=== PATIENT | female | born 1955 | race Two or more races ===

== ENCOUNTER 2018-08-10 12:07 | Emergency (ER) | payer OTHER ==
[2018-08-10 13:19] LABS: Protime INR 1.01
[2018-08-10 13:21] LABS: Absolute Lymphocytes (CBC) 2.9 K/uL (0.7-4.9); Absolute Monocytes 0.7 K/uL (0.1-1.3); Basophils % 0.8 % (0-1.3); Eosinophils % 1.5 % (0-4.4); Hematocrit 38.9 % (36.0-45.0); Lymphocytes % 27.1 % (15.3-44.8); MPV 8.3 fL (7.6-11.3); Monocytes % 6.6 % (3.3-12.3); RBC Red Blood Cell Count 4.31 M/uL (3.86-4.86)
--- NOTE | 2018-08-10 13:29 | RAD REPORT ---
EXAM DESCRIPTION: RAD - Chest Single View - 08/10/2018 1:24 pm CLINICAL HISTORY: PALPITATIONS Chest pain. COMPARISON: Chest Pa And Lat (2 Views) dated 07/21/2017; Chest Pa And Lat (2 Views) dated 07/15/2017; C hest Pa And Lat (2 Views) dated 12/07/2016; Chest Pa And Lat (2 Views) dated 09/30/2015 FINDINGS: Portable technique limits examination quality. The lungs are grossly clear. The heart is normal in size. No displaced fractures. IMPRESSION: No acute intrathoracic process suspected.
[2018-08-10 13:30] LABS: ALT/SGPT 31 U/L (12-78); AST/SGOT 16 U/L (15-37); Albumin 3.7 g/dL (3.4-5.0); Alkaline Phosphatase 102 U/L (45-117); BUN Blood Urea Nitrogen 17 mg/dL (7-18); Bicarbonate 25 mmol/L (21-32); Bilirubin Direct 0.1 mg/dL (0-0.2); Bilirubin Total 0.5 mg/dL (0.2-1.0); Glucose Level 206 mg/dL (74-106); NT PRO-BNP 33 pg/mL (<125); Potassium 3.8 mmol/L (3.5-5.1); Protein, Total 8.2 g/dL (6.4-8.2); Sodium Level 138 mmol/L (136-145); Troponin (Emerg Dept Use Only) < 0.02 ng/mL (0.0-0.045)
--- NOTE | 2018-08-10 14:36 | ER ---
Nurse's Notes [facility] Name: Zahra Jolley Age: 62 yrs Sex: Female : 1955 Arrival Date: 08/10/2018 Time: 12:09 Bed 4 Private MD: Isabel Sandoval H Diagnosis: Palpitations Presentation: 08/10 12:34 Presenting complaint: Patient states: pt c/o pain to left arm and left side of chest iw radiates to left side of neck and upper back, pain is intermittent for months, also c/o intermittent palpitations and intermittent dizziness, was due to see Dr. Sandoval on August 18 but symptoms got worse yesterday. Transition of care: patient was not received from another setting of care. Onset of symptoms was June 2018. Risk Assessment: Do you want to hurt yourself or someone else? Patient reports no desire to harm self or others. Initial Sepsis Screen: Does the patient meet any 2 criteria? No. Patient's initial sepsis screen is negative. Does the patient have a suspected source of infection? No. Patient's initial sepsis screen is negative. Care prior to arrival: None. 12:34 Method Of Arrival: Ambulatory iw 12:34 Acuity: KT 3 iw Triage Assessment: 12:30 General: Appears in no apparent distress. comfortable. bp Historical: - Allergies: 12:39 Morphine; iw 12:39 Phenergan; iw - Home Meds: 12:39 Breann 180 mg Oral tab 1 tab once daily [Active]; Multiple Vitamins Oral tab [Active]; iw - PMHx: 12:39 UTI; iw - Immunization history:: Adult Immunizations up to date. - Social history:: Smoking status: Patient/guardian denies using tobacco. - Ebola Screening: : Patient negative for fever greater than or equal to 101.5 degrees Fahrenheit, and additional compatible Ebola Virus Disease symptoms Patient denies exposure to infectious person Patient denies travel to an Ebola-affected area in the 21 days before illness onset No symptoms or risks identified at this time. Screenin:40 Abuse screen: Denies threats or abuse. Denies injuries from another. Nutritional bp screening: No deficits noted. Tuberculosis screening: No symptoms or risk factors identified. Fall Risk None identified. Assessment: 12:40 General: Appears in no apparent distress. comfortable, Behavior is cooperative, bp appropriate for age, anxious. Pain: Denies pain. Neuro: Level of Consciousness is awake, alert, obeys commands, Oriented to person, place, time, situation, Appropriate for age. Cardiovascular: No deficits noted. Respiratory: Airway is patent Respiratory effort is even, unlabored, Respiratory pattern is regular, symmetrical. GI: No signs and/or symptoms were reported involving the gastrointestinal system. : No signs and/or symptoms were reported regarding the genitourinary system. EENT: No deficits noted. Derm: No deficits noted. Musculoskeletal: Circulation, motion, and sensation intact. Range of motion: intact in all extremities. 14:31 Reassessment: ALL CURRENT ORDERS COMPLETED, NO ACUTE S/S AT THIS TIME. bp Vital Signs: 12:40 BP 137 / 81; Pulse 91; Resp 16; Temp 98; Pulse Ox 100% ; bp 14:18 BP 134 / 80; Pulse 93; Resp 18; Pulse Ox 99% ; bp ED Course: 12:09 Patient arrived in ED. rg4 12:10 Isabel Sandoval DO is Private Physician. rg4 12:27 [facility] pm1 12:27 Ramesh Smith MD is Attending Physician. pm1 12:34 Marito Galvez, HITESH is Primary Nurse. bp 12:38 Triage completed. iw 12:38 Arm band placed on. iw 12:40 Patient has correct armband on for positive identification. Bed in low position. Call bp light in reach. Side rails up X2. 13:06 Inserted saline lock: 22 gauge in right forearm, using aseptic technique. Blood bp collected. 13:22 XRAY Chest (1 view) In Process Unspecified. EDMS 14:35 Ravin Espinosa MD is Referral Physician. pm1 14:35 Isabel Sandoval DO is Referral Physician. pm1 Administered Medications: No medications were administered Outcome: 14:36 Discharge ordered by . pm1 15:16 Patient left the ED. iw Signatures: Dispatcher [employer] Rita Washington RN RN iw Rome Richards NP CREDIT ADVISOR pm1 Ashlee Ramirez rg4 Marito Galvez RN RN bp Corrections: (The following items were deleted from the chart) 13:06 12:40 BP 137 / 81; iw bp
--- NOTE | 2018-08-10 14:36 | EDPHYS ---
Physician Documentation [facility] Name: Zahra Jolley Age: 62 yrs Sex: Female : 1955 Arrival Date: 08/10/2018 Time: 12:09 Bed 4 Private MD: Isabel Sandoval H ED Physician Ramesh Smith HPI: 08/10 13:30 This 62 yrs old Female presents to ER via Ambulatory with complaints of pm1 Palpitations, Dizziness. 22:57 The patient presents with a history of irregular heart beat. Context: The symptoms pm1 occur at rest. Onset: The symptoms/episode began/occurred Many months ago. Duration: The patient or guardian reports multiple episodes, that have now resolved. Modifying factors: The symptoms are aggravated by caffeine and coffee The symptoms are alleviated by nothing. Associated signs and symptoms: Pertinent positives: dizziness, Pertinent negatives: chest pain, cough, fever, SOB, syncope, near-syncope, vomiting. Severity of symptoms: in the emergency department the symptoms have resolved Pain is currently a 0 / 10. The patient has not recently seen a physician, the patient's primary care provider is Dr. Sandoval, has an appointment scheduled, August 18. Patient occasionally feels one irregular beat that gives her a sensation of dizziness that is worsened with drinking coffee and caffeine. Historical: - Allergies: 12:39 Morphine; iw 12:39 Phenergan; iw - Home Meds: 12:39 Breann 180 mg Oral tab 1 tab once daily [Active]; Multiple Vitamins Oral tab [Active]; iw - PMHx: 12:39 UTI; iw - Immunization history:: Adult Immunizations up to date. - Social history:: Smoking status: Patient/guardian denies using tobacco. - Ebola Screening: : Patient negative for fever greater than or equal to 101.5 degrees Fahrenheit, and additional compatible Ebola Virus Disease symptoms Patient denies exposure to infectious person Patient denies travel to an Ebola-affected area in the 21 days before illness onset No symptoms or risks identified at this time. ROS: 22:57 Constitutional: Negative for fever, chills, and weight loss, Eyes: Negative for injury, pm1 pain, redness, and discharge, ENT: Negative for injury, pain, and discharge, Neck: Negative for injury, pain, and swelling. 22:57 Respiratory: Negative for shortness of breath, cough, wheezing, and pleuritic chest pain, Abdomen/GI: Negative for abdominal pain, nausea, vomiting, diarrhea, and constipation, Back: Negative for injury and pain, : Negative for injury, bleeding, discharge, and swelling, MS/Extremity: Negative for injury and deformity, Skin: Negative for injury, rash, and discoloration. 22:57 Cardiovascular: Positive for palpitations, Negative for chest pain, edema, orthopnea, paroxysmal nocturnal dyspnea. 22:57 Neuro: Positive for dizziness, Negative for headache, numbness, syncope, near syncope, tingling, weakness. Exam: 22:57 Constitutional: This is a well developed, well nourished patient who is awake, alert, pm1 and in no acute distress. Head/Face: Normocephalic, atraumatic. Eyes: Pupils equal round and reactive to light, extra-ocular motions intact. Lids and lashes normal. Conjunctiva and sclera are non-icteric and not injected. Cornea within normal limits. Periorbital areas with no swelling, redness, or edema. ENT: Nares patent. No nasal discharge, no septal abnormalities noted. Tympanic membranes are normal and external auditory canals are clear. Oropharynx with no redness, swelling, or masses, exudates, or evidence of obstruction, uvula midline. Mucous membranes moist. Neck: Trachea midline, no thyromegaly or masses palpated, and no cervical lymphadenopathy. Supple, full range of motion without nuchal rigidity, or vertebral point tenderness. No Meningismus. Chest/axilla: Normal chest wall appearance and motion. Nontender with no deformity. No lesions are appreciated. Cardiovascular: Regular rate and rhythm with a normal S1 and S2. No gallops, murmurs, or rubs. Normal PMI, no JVD. No pulse deficits. Respiratory: Lungs have equal breath sounds bilaterally, clear to auscultation and percussion. No rales, rhonchi or wheezes noted. No increased work of breathing, no retractions or nasal flaring. Abdomen/GI: Soft, non-tender, with normal bowel sounds. No distension or tympany. No guarding or rebound. No evidence of tenderness throughout. Back: No spinal tenderness. No costovertebral tenderness. Full range of motion. Skin: Warm, dry with normal turgor. Normal color with no rashes, no lesions, and no evidence of cellulitis. MS/ Extremity: Pulses equal, no cyanosis. Neurovascular intact. Full, normal range of motion. 22:57 Neuro: Orientation: is normal, Mentation: is normal, Motor: is normal, moves all fours, Sensation: is normal, no obvious gross deficits, Gait: is steady, at a normal pace, without difficulty. Vital Signs: 12:40 BP 137 / 81; Pulse 91; Resp 16; Temp 98; Pulse Ox 100% ; bp 14:18 BP 134 / 80; Pulse 93; Resp 18; Pulse Ox 99% ; bp MDM: 12:36 Patient medically screened. pm1 14:33 Data reviewed: vital signs. Data interpreted: Pulse oximetry: on room air is 99 %. pm1 Interpretation: normal. Counseling: I had a detailed discussion with the patient and/or guardian regarding: the historical points, exam findings, and any diagnostic results supporting the discharge/admit diagnosis, lab results, radiology results, the need for outpatient follow up, a hvac journeyman, Holter monitor, to return to the emergency department if symptoms worsen or persist or if there are any questions or concerns that arise at home. 08/10 12:36 Order name: Basic Metabolic Panel; Complete Time: 13:41 pm1 08/10 12:36 Order name: CBC with Diff; Complete Time: 13:41 pm08/10 12:36 Order name: LFT's; Complete Time: 13:41 pm1 08/10 12:36 Order name: Magnesium; Complete Time: 13:41 pm08/10 12:36 Order name: NT PRO-BNP; Complete Time: 13:41 pm08/10 12:36 Order name: PT-INR; Complete Time: 13:41 pm08/10 12:36 Order name: Troponin (emerg Dept Use Only); Complete Time: 13:41 pm1 08/10 12:36 Order name: XRAY Chest (1 view); Complete Time: 13:41 pm1 08/10 12:36 Order name: EKG; Complete Time: 12:38 pm1 08/10 12:36 Order name: Cardiac monitoring; Complete Time: 12:50 pm1 08/10 12:36 Order name: EKG - Nurse/Tech; Complete Time: 12:50 pm08/10 12:36 Order name: IV Saline Lock; Complete Time: 13:05 pm1 08/10 12:36 Order name: Labs collected and sent; Complete Time: 13:05 pm1 08/10 12:36 Order name: O2 Per Protocol; Complete Time: 12:50 pm1 08/10 12:36 Order name: O2 Sat Monitoring; Complete Time: 12:50 pm1 Administered Medications: No medications were administered Disposition: 08/10/18 14:36 Discharged to Home. Impression: Palpitations. - Condition is Stable. - Discharge Instructions: Holter Monitoring, Palpitations. - Medication Reconciliation Form, Thank You Letter form. - Follow up: Emergency Department; When: As needed; Reason: Recheck today's complaints, Continuance of care, Re-evaluation by your physician. Follow up: Ravin Espinosa MD; When: 2 - 3 days; Reason: Recheck today's complaints, Continuance of care, Re-evaluation by your physician. Follow up: Isabel Sandoval DO; When: 2 - 3 days; Reason: Recheck today's complaints, Continuance of care, Re-evaluation by your physician. - Problem is new. - Symptoms have improved. Signatures: Dispatcher [employer] EDRita Dick RN RN iw Rome Richards NP ADVERTISING SOLICITOR pm1 Corrections: (The following items were deleted from the chart) 15:16 14:36 08/10/2018 14:36 Discharged to Home. Impression: Palpitations. Condition is iw Stable. Forms are Medication Reconciliation Form, Thank You Letter, Antibiotic Education, Prescription Opioid Use. Follow up: Emergency Department; When: As needed; Reason: Recheck today's complaints, Continuance of care, Re-evaluation by your physician. Follow up: Ravin Espinosa; When: 2 - 3 days; Reason: Recheck today's complaints, Continuance of care, Re-evaluation by your physician. Follow up: Isabel Sandoval; When: 2 - 3 days; Reason: Recheck today's complaints, Continuance of care, Re-evaluation by your physician. Problem is new. Symptoms have improved. pm1
[2018-08-10 15:23] VITALS: TEMP 98
[2018-08-10 15:26] VITALS: BP 134/80; O2SAT 99
--- NOTE | 2018-08-10 21:38 | EKG ---
Test Date: 2018-08-10 Test Time: 12:44:54 Legal Assistant: SHANI MEASUREMENT RESULTS: Intervals: Rate: 92 UT: 144 QRSD: 74 QT: 356 QTc: 440 [place]: P: 34 UT: 144 QRS: 67 T: 28 INTERPRETIVE STATEMENTS: Normal sinus rhythm Nonspecific T wave abnormality Abnormal ECG Compared to ECG 07/15/2017 19:32:14 T-wave abnormality now present Myocardial infarct finding no longer present Electronically Signed On 08-10-18 21:36:12 CAPTAIN ASSISTANT by Ravin Espinosa
== END 2018-08-10 15:16 | disposition home or self-care (01) ==
LOC: ER 12:07
DX: R00.2 Palpitations (principal); Z88.5 Allergy status to narcotic agent; Z88.8 Allergy status to other drugs, medicaments and biological substances
CPT/HCPCS: 36415; 71045; 80048; 80076; 83735; 83880; 84484; 85025; 85610; 93005; 99283

== ENCOUNTER 2018-08-23 13:11 | Emergency (ER) | payer OTHER ==
--- NOTE | 2018-08-23 16:17 | RAD REPORT ---
EXAM DESCRIPTION: RAD - Knee Right 3 View - 08/23/2018 3:10 pm CLINICAL HISTORY: Right knee pain FINDINGS: No fracture or dislocation is seen. Small spurs extend off of the patella
--- NOTE | 2018-08-23 16:30 | EDPHYS ---
Physician Documentation [facility] Name: Zahra Jolley Age: 62 yrs Sex: Female : 1955 Arrival Date: 08/23/2018 Time: 13:13 Bed 12 Private MD: Isabel Sandoval H ED Physician Mark Olson HPI: 08/23 15:36 This 62 yrs old Female presents to ER via Ambulatory with complaints of Knee Pain. jr8 15:36 The patient presents with decreased range of motion, pain, tenderness. The complaints jr8 affect the right knee. Context: The problem was sustained at work, resulted from standing up, the patient can fully bear weight, the patient is able to ambulate, with mild difficulty, Problem is a result from a previous injury: No. Onset: The symptoms/episode began/occurred yesterday. Modifying factors: The symptoms are alleviated by nothing. the symptoms are aggravated by movement, weight bearing, bending knee. Associated signs and symptoms: The patient has no apparent associated signs or symptoms. Severity of symptoms: At their worst the symptoms were mild, in the emergency department the symptoms are unchanged. The patient has not experienced similar symptoms in the past. The patient has not recently seen a physician. Patient stated that she was getting up and felt pop in knee. Since then has had pain to right knee. Denies fall . Historical: - Allergies: 13:48 Morphine; tw2 13:48 Phenergan; tw2 13:48 Codeine; tw2 - Home Meds: 13:48 Multiple Vitamins Oral tab [Active]; Breann 180 mg Oral tab 1 tab once daily [Active]; tw2 - PMHx: 13:48 UTI; tw2 - Immunization history:: Adult Immunizations up to date, Adult Immunizations. - Social history:: Smoking status: Patient/guardian denies using tobacco, Smoking status: Patient/guardian denies using tobacco. - Ebola Screening: : Patient denies travel to an Ebola-affected area in the 21 days before illness onset Patient denies travel to an Ebola-affected area in the 21 days before illness onset. ROS: 15:36 Eyes: Negative for injury, pain, redness, and discharge, ENT: Negative for injury, jr8 pain, and discharge, Neck: Negative for injury, pain, and swelling, Cardiovascular: Negative for chest pain, palpitations, and edema, Respiratory: Negative for shortness of breath, cough, wheezing, and pleuritic chest pain, Abdomen/GI: Negative for abdominal pain, nausea, vomiting, diarrhea, and constipation, Back: Negative for injury and pain, Skin: Negative for injury, rash, and discoloration, Neuro: Negative for headache, weakness, numbness, tingling, and seizure. 15:36 MS/extremity: Positive for decreased range of motion, pain, tenderness, of the right knee. Exam: 15:36 Eyes: Pupils equal round and reactive to light, extra-ocular motions intact. Lids and jr8 lashes normal. Conjunctiva and sclera are non-icteric and not injected. Cornea within normal limits. Periorbital areas with no swelling, redness, or edema. ENT: Nares patent. No nasal discharge, no septal abnormalities noted. Tympanic membranes are normal and external auditory canals are clear. Oropharynx with no redness, swelling, or masses, exudates, or evidence of obstruction, uvula midline. Mucous membranes moist. Neck: Trachea midline, no thyromegaly or masses palpated, and no cervical lymphadenopathy. Supple, full range of motion without nuchal rigidity, or vertebral point tenderness. No Meningismus. Cardiovascular: Regular rate and rhythm with a normal S1 and S2. No gallops, murmurs, or rubs. Normal PMI, no JVD. No pulse deficits. Respiratory: Lungs have equal breath sounds bilaterally, clear to auscultation and percussion. No rales, rhonchi or wheezes noted. No increased work of breathing, no retractions or nasal flaring. Abdomen/GI: Soft, non-tender, with normal bowel sounds. No distension or tympany. No guarding or rebound. No evidence of tenderness throughout. Back: No spinal tenderness. No costovertebral tenderness. Full range of motion. Skin: Warm, dry with normal turgor. Normal color with no rashes, no lesions, and no evidence of cellulitis. Neuro: Awake and alert, GCS 15, oriented to person, place, time, and situation. Cranial nerves II-XII grossly intact. Motor strength 5/5 in all extremities. Sensory grossly intact. Cerebellar exam normal. Normal gait. 15:36 Musculoskeletal/extremity: Extremities: grossly normal except: noted in the right knee: pain, tenderness, ROM: intact in all extremities, full active range of motion, full passive range of motion, limited active range of motion due to pain, limited passive range of motion due to pain, Circulation is intact in all extremities. Sensation intact. Weight bearing: able to fully bear weight. Vital Signs: 13:45 BP 123 / 73; Pulse 97; Resp 18; Temp 98(TE); Pulse Ox 100% on R/A; Weight 56.25 kg (R); tw2 Height 4 ft. 11 in. (149.86 cm); Pain 710; 13:45 Body Mass Index 25.04 (56.25 kg, 149.86 cm) tw2 13:45 if i move 10 tw2 MDM: 14:16 Patient medically screened. jr8 16:28 Data reviewed: vital signs, nurses notes, radiologic studies, plain films, and as a jr8 result, I will discharge patient. Data interpreted: Pulse oximetry: on room air is 100 %. Interpretation: normal. Counseling: I had a detailed discussion with the patient and/or guardian regarding: the historical points, exam findings, and any diagnostic results supporting the discharge/admit diagnosis, radiology results, the need for outpatient follow up, a orthopedic surgeon, to return to the emergency department if symptoms worsen or persist or if there are any questions or concerns that arise at home. 08/23 14:31 Order name: XRAY Knee RIGHT 3 view; Complete Time: 16:28 jr8 Administered Medications: No medications were administered Disposition: 08/24 08:02 Co-signature as Attending Physician, aMrk Olson MD I agree with the assessment and kdr plan of care. Disposition: 08/23/18 16:29 Discharged to Home. Impression: Pain in right knee. - Condition is Stable. - Discharge Instructions: Knee Pain. - Prescriptions for Mobic 7.5 mg Oral Tablet - take 1 tablet by ORAL route once daily take with food; 20 tablet. - Medication Reconciliation Form, Thank You Letter, Antibiotic Education, Prescription Opioid Use, Work release form form. - Follow up: Dani Moreno MD; When: 2 - 3 days; Reason: Recheck today's complaints, Continuance of care, Re-evaluation by your physician. - Problem is new. - Symptoms have improved. Signatures: Dispatcher [employer] EDKY Mark Olson MD MD kdr Rita Morse, RN RN iw Jevon Billings PA PA jr8 Tia Hernandez RN RN tw2 Corrections: (The following items were deleted from the chart) 08/23 16:59 16:29 08/23/2018 16:29 Discharged to Home. Impression: Pain in right knee. Condition is iw Stable. Forms are Work release form, Medication Reconciliation Form, Thank You Letter, Antibiotic Education, Prescription Opioid Use. Follow up: Dani Moreno; When: 2 - 3 days; Reason: Recheck today's complaints, Continuance of care, Re-evaluation by your physician. Problem is new. Symptoms have improved. jr8
--- NOTE | 2018-08-23 16:30 | ER ---
Nurse's Notes [facility] Name: Zahra Jolley Age: 62 yrs Sex: Female : 1955 Arrival Date: 08/23/2018 Time: 13:13 Bed 12 Private MD: Isabel Sandoval H Diagnosis: Pain in right knee Presentation: 08/23 13:44 Presenting complaint: Patient states: when i went to the bathroom and when i stood up i tw2 heard my knee pop, RIGHT knee and radiates up to hip. Transition of care: patient was not received from another setting of care. Onset of symptoms was August 23, 2018. Risk Assessment: Do you want to hurt yourself or someone else? Patient reports no desire to harm self or others. Initial Sepsis Screen: Does the patient meet any 2 criteria? No. Patient's initial sepsis screen is negative. Does the patient have a suspected source of infection? No. Patient's initial sepsis screen is negative. Care prior to arrival: None. 13:44 Method Of Arrival: Ambulatory tw2 13:44 Acuity: KT 4 tw2 Triage Assessment: 13:49 General: Appears in no apparent distress. Behavior is calm, cooperative, appropriate tw2 for age. Pain: Complains of pain in right knee. Historical: - Allergies: 13:48 Morphine; tw2 13:48 Phenergan; tw2 13:48 Codeine; tw2 - Home Meds: 13:48 Multiple Vitamins Oral tab [Active]; Breann 180 mg Oral tab 1 tab once daily [Active]; tw2 - PMHx: 13:48 UTI; tw2 - Immunization history:: Adult Immunizations up to date, Adult Immunizations. - Social history:: Smoking status: Patient/guardian denies using tobacco, Smoking status: Patient/guardian denies using tobacco. - Ebola Screening: : Patient denies travel to an Ebola-affected area in the 21 days before illness onset Patient denies travel to an Ebola-affected area in the 21 days before illness onset. Screenin:49 Abuse screen: Denies threats or abuse. Nutritional screening: No deficits noted. tw2 Tuberculosis screening: No symptoms or risk factors identified. Fall Risk None identified. Assessment: 13:50 General: Appears in no apparent distress. Behavior is calm, cooperative, appropriate tw2 for age. Pain: Complains of pain in right leg and right knee. Neuro: Level of Consciousness is awake, alert, obeys commands, Oriented to person, place, time, situation. Cardiovascular: Patient's skin is warm and dry. Respiratory: Airway is patent Respiratory effort is even, unlabored, Respiratory pattern is regular, symmetrical. GI: No signs and/or symptoms were reported involving the gastrointestinal system. : No signs and/or symptoms were reported regarding the genitourinary system. Musculoskeletal: Circulation, motion, and sensation intact. Range of motion: limited in right knee Reports pain in right leg. Vital Signs: 13:45 BP 123 / 73; Pulse 97; Resp 18; Temp 98(TE); Pulse Ox 100% on R/A; Weight 56.25 kg (R); tw2 Height 4 ft. 11 in. (149.86 cm); Pain 7/10; 13:45 Body Mass Index 25.04 (56.25 kg, 149.86 cm) tw2 13:45 if i move 10 tw2 ED Course: 13:13 Patient arrived in ED. mr 13:13 Isabel Sandoval DO is Private Physician. mr 13:45 Triage completed. tw2 13:45 Arm band placed on. tw2 13:49 Rita Morse, RN is Primary Nurse. iw 13:49 Bed in low position. Call light in reach. Pulse ox on. NIBP on. tw2 13:52 Jevon Billings PA is PHCP. jr8 13:52 Mark Olson MD is Attending Physician. jr8 15:10 XRAY Knee RIGHT 3 view In Process Unspecified. EDMS 16:28 Dani Moreno MD is Referral Physician. jr8 16:58 No provider procedures requiring assistance completed. Patient did not have IV access iw during this emergency room visit. Administered Medications: No medications were administered Outcome: 16:29 Discharge ordered by . jr8 16:58 Discharged to home ambulatory. iw 16:58 Condition: good 16:58 Discharge instructions given to patient, Instructed on discharge instructions, follow up and referral plans. medication usage, Demonstrated understanding of instructions, follow-up care, medications, Prescriptions given X 1. 16:59 Patient left the ED. iw Signatures: Dispatcher [facility] Jocy Hansen Rita Baker, RN RN iw Jevon Billings PA PA jr8 Tia Hernandez, RN RN tw2
[2018-08-23 17:24] VITALS: TEMP 97.4
[2018-08-23 17:26] VITALS: BP 110/74; O2SAT 99
== END 2018-08-23 16:59 | disposition home or self-care (01) ==
LOC: ER 13:11
DX: M25.561 Pain in right knee (principal); Z88.5 Allergy status to narcotic agent; Z88.8 Allergy status to other drugs, medicaments and biological substances
CPT/HCPCS: 99283

== ENCOUNTER 2019-11-19 12:42 | Observation (INO) | payer OTHER ==
[2019-11-19 13:34] LABS: Absolute Lymphocytes (CBC) 1.7 K/uL (0.7-4.9); Basophils % 0.9 % (0-1.3); Hematocrit 39.1 % (36.0-45.0); Lymphocytes % 17.2 % (15.3-44.8); MPV 8.7 fL (7.6-11.3); RBC Red Blood Cell Count 4.45 M/uL (3.86-4.86)
[2019-11-19 13:35] LABS: Protime INR 1.03
--- NOTE | 2019-11-19 13:35 | RAD REPORT ---
EXAM DESCRIPTION: RAD - Chest Single View - 11/19/2019 1:30 pm CLINICAL HISTORY: CHEST PAIN Chest pain. COMPARISON: Chest Single View dated 08/10/2018; Chest Pa And Lat (2 Views) dated 07/21/2017; Chest Pa A nd Lat (2 Views) dated 07/15/2017; Chest Pa And Lat (2 Views) dated 12/07/2016 FINDINGS: Portable technique limits examination quality. The lungs are grossly clear. The heart is normal in size. No displaced fractures. IMPRESSION: No acute intrathoracic process suspected.
[2019-11-19 13:52] LABS: ALT/SGPT 46 U/L (12-78); AST/SGOT 23 U/L (15-37); Albumin 4.3 g/dL (3.4-5.0); Alkaline Phosphatase 80 U/L (45-117); BUN Blood Urea Nitrogen 18 mg/dL (7-18); Bicarbonate 22 mmol/L (21-32); Bilirubin Direct 0.2 mg/dL (0-0.2); Bilirubin Total 0.9 mg/dL (0.2-1.0); Glucose Level 145 mg/dL (74-106); Magnesium 2.2 mg/dL (1.8-2.4); NT PRO-BNP 21 pg/mL (<125); Potassium 4.2 mmol/L (3.5-5.1); Protein, Total 8.7 g/dL (6.4-8.2); Sodium Level 137 mmol/L (136-145); Troponin (Emerg Dept Use Only) < 0.02 ng/mL (0.0-0.045)
[2019-11-19] MEDS ORDERED: ONDANSETRON 4 MG/2 ML VIAL ONE (14:23)
--- NOTE | 2019-11-19 14:31 | RAD REPORT ---
EXAM DESCRIPTION: CT - Head Brain Wo Cont - 11/19/2019 2:23 pm CLINICAL HISTORY: DIZZINESS Headache, drowsiness COMPARISON: Head Brain Wo Cont dated 09/30/2015 TECHNIQUE: All CT scans are performed using dose optimization technique as appropriate and may inclu de automated exposure control or mA/KV adjustment according to patient size. FINDINGS: No intracranial hemorrhage, hydrocephalus or extra-axial fluid collection.No areas of brai n edema or evidence of midline shift. The paranasal sinuses and mastoids are clear. The calvarium is intact. IMPRESSION: No acute intracranial abnormality.
--- NOTE | 2019-11-19 14:34 | RAD REPORT ---
EXAM DESCRIPTION: CT - Chest For Pe Angio - 11/19/2019 2:26 pm CLINICAL HISTORY: Chest pain. COUGH COMPARISON: No comparisons TECHNIQUE: CT angiogram of the pulmonary arteries was performed with MIP. All CT scans are performed using dose optimization technique as appropriate and may include automated exposure control or mA/KV adjustment according to patient size. FINDINGS: No evidence of pulmonary thromboembolism. No acute aortic finding demonstrated. The lungs are mildly emphysematous. No significant pericardial or pleural fluid. No concerning bony finding. IMPRESSION: No evidence of pulmonary thromboembolism. Mild emphysema.
--- NOTE | 2019-11-19 15:59 | P.HP ---
Certification for Inpatient Patient admitted to: Observation With expected LOS: <2 Midnights Patient will require the following post-hospital care: None Practitioner: I am a practitioner with admitting privileges, knowledge of patient current condition, hospital course, and medical plan of care. Services: Services provided to patient in accordance with Admission requirements found in Title 42 Section 412.3 of the Code of Federal Regulations Patient History Date of Service: 11/19/19 Primary Care Provider: unknown Reason for admission: Dizziness, diaphoresis History of Present Illness: 64-year-old female presented to the emergency room with dizziness, diaphoresis. The episodes of dizziness and diaphoresis occurred at work. She also reported a cough over the past week. She reports that this cough is allergy related. Some congestion noted. She denies any fever, chills, shortness of breath. She denies any sick contacts. 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 Patient also reported some nausea with vomiting today. Patient further reports that she has been taking POLLO-inhibitor for hypertension. She came to the ER for further evaluation. In the ER patient was evaluated. CT head unremarkable. CT chest showed no evidence of pneumonia or pulmonary embolism. Chest x-ray unremarkable. Flu test negative. Strep test negative. White count 9.8, hemoglobin 13. Sodium 137, potassium 4.2. BUN of 18, creatinine 0.86 with a GFR 67. Glucose 141. Troponin unremarkable. Testing for COVID was done. The patient was admitted for further evaluation. When I saw the patient ER, patient appeared stable. She appears slightly dehydrated. She did not appear septic. Vital signs stable. Allergies morphine Allergy (Unverified 07/21/17 17:03) Unknown promethazine [From Phenergan] Allergy (Unverified 07/21/17 17:03) Unknown Home medications list reviewed: Yes Home Medications: Clarithromycin [Biaxin*] 500 mg PO BID #10 tab 06/26/12 Metoclopramide HCl [Reglan] 10 mg PO AC #0 tablet 06/26/12 Ondansetron [Zofran (Odt)*] 4 mg PO Q6HP PRN #0 tab 06/26/12 - Past Medical/Surgical History Diabetic: Yes -: Hypertension -: Diabetes mellitus type 2 Past Surgical History: Reviewed- Non-Contributory Psychosocial/ Personal History: Patient lives at home. - Family History Family History: Reviewed- Non-Contributory - Social History Smoking Status: Never smoker Alcohol use: No CD- Drugs: No Caffeine use: Yes Place of Residence: Home Review of Systems General: Weakness, As per HPI Eyes: Unremarkable ENT: Nose Congestion, As per HPI Respiratory: Cough, As per HPI Cardiovascular: Light Headedness, As per HPI Gastrointestinal: Nausea, Vomiting, As per HPI Genitourinary: Unremarkable Integumentary: Unremarkable Neurological: As per HPI Lymphatics: Unremarkable Physical Examination - Physical Exam General: Alert, In no apparent distress, Oriented x3, Cooperative HEENT: Atraumatic, Normocephalic, PERRLA, Other (Dry mucous membranes) Neck: Supple Respiratory: Clear to auscultation bilaterally, Normal air movement Cardiovascular: Normal pulses, Regular rate/rhythm Gastrointestinal: Normal bowel sounds, Soft and benign, Non-distended, No tenderness, No masses, No rebound, No guarding Musculoskeletal: No erythema, No tenderness, No warmth Integumentary: No tenderness/swelling, No erythema, No warmth, No cyanosis Neurological: Normal speech, Normal strength at 5/5 x4 extr, Normal tone, Normal affect - Studies Laboratory Data (last 24 hrs) 11/19/19 13:20: PT 12.1, INR 1.03 11/19/19 13:20: WBC 9.8, Hgb 13.0, Hct 39.1, Plt Count 309 11/19/19 13:20: Sodium 137, Potassium 4.2, BUN 18, Creatinine 0.86, Glucose 145 H, Magnesium 2.2, Total Bilirubin 0.9, AST 23, ALT 46, Alkaline Phosphatase 80 Microbiology Data (last 24 hrs): 11/19/19 15:06 Throat Group A Streptococcus Rapid Screen - Final 11/19/19 15:06 Nasopharnyx Influenza Type A Antigen Screen - Final 11/19/19 15:06 Nasopharnyx Influenza Type B Antigen Screen - Final Assessment and Plan - Plan Impression: Dizziness, diaphoresis-presyncope suspect related to dehydration Acute renal injury likely from dehydration Chronic cough suspect related to POLLO-inhibitor Hypertension Diabetes mellitus type 2 Plan: Dizziness, diaphoresis-presyncope, cough suspect related to dehydration: Patient will be admitted for further evaluation and observation. Patient favio ears dehydrated. Will start IV fluids. Due to her symptoms patient will be evaluated for COVID. CT chest, CT head, chest x-ray unremarkable. Will maintain sats above 93%. Will continue monitor closely. Recheck lab in the morning. Will advance diet as tolerated. Will continue to reassess and monitor closely. Will need to review home medications and adjust accordingly. Will provide DVT prophylaxis. Will obtain echocardiogram and carotid Doppler. Likely no need for MRI at this time. Anticipate discharge in the next 24 hr. Acute renal injury likely from dehydration: Continue IV fluids. Will monitor closely. Electrolyte protocol in place. Chronic cough suspect related to POLLO-inhibitor: Will hold POLLO-inhibitor at this time. This may be the cause of her cough. Hypertension: Obtain home medication. Will hold POLLO-inhibitor. Will consider adjusting medication accordingly. Diabetes mellitus type 2: Will monitor Accu-Cheks and provide sliding scale. Discharge Plan: Home Plan to discharge in: 24 Hours - Advance Directives Does patient have a Living Will: No Does patient have a Durable POA for Healthcare: No - Code Status/Comfort Care Code Status Assessed: Yes (Full code.) Time Spent Managing Pts Care (In Minutes): 55
[2019-11-19] MEDS ORDERED: NA CHLORIDE 0.9% 1,000 ML ONE (16:12)
[2019-11-19] MEDS ORDERED: MAGNE/ALUM HYDROXD 30 ML UCUP ONE (19:29)
[2019-11-19] MEDS ORDERED: LIDOCAINE VISCOUS 2% SOLN 15 ML UDC ONE (19:29)
[2019-11-19] MEDS ORDERED: ACETAMINOPHEN 500 MG TAB PO PRN (19:53)
[2019-11-19] MEDS: INSULIN -REGULAR HUMAN 50 UNIT/0.5 ML ML SQ SCH ×2 (19:53→20:40)
[2019-11-19] MEDS ORDERED: ALBUTEROL INHALER 60 PUFF/8 GM IH PRN (19:53)
[2019-11-19] MEDS: ONDANSETRON 4 MG/2 ML VIAL IV PRN (19:58)
--- NOTE | 2019-11-19 20:13 | ER ---
Nurse's Notes [facility] Name: Zahra Jolley Age: 64 yrs Sex: Female : 1955 Arrival Date: 11/19/2019 Time: 12:48 Bed 20 Private MD: Diagnosis: Syncope and collapse;Dizziness and giddiness;Emphysema, unspecified Presentation: 11/18 12:45 Chief complaint: Patient states: she became dizzy, sweaty and vomited x1. Pt does have hx of DM, BS 133. Coronavirus screen: Proceed with normal triage. Patient reports a cough. Patient denies shortness of breath or difficulty breathing. Patient denies measured and/or subjective temperature greater than 100.4F prior to today's visit. Patient denies travel on a cruise ship or to a country the [facility] currently lists as an affected area. Patient denies contact with known and/or suspected case of COVID-19. Ebola Screen: No symptoms or risks identified at this time. Initial Sepsis Screen: Does the patient meet any 2 criteria? No. Patient's initial sepsis screen is negative. Does the patient have a suspected source of infection? No. Patient's initial sepsis screen is negative. Risk Assessment: Do you want to hurt yourself or someone else? Patient reports no desire to harm self or others. Onset of symptoms was November 19, 2019. 12:45 Method Of Arrival: Ambulatory 12:45 Acuity: KT 3 Historical: - Allergies: 13:11 Codeine; 13:11 Morphine; 13:11 Phenergan; 13:11 Demerol; - Home Meds: 13:11 Metformin Oral [Active]; Amaryl Oral [Active]; Claritin Oral [Active]; atorvastatin ah oral oral [Active]; Lisinopril Oral [Active]; - PMHx: 13:11 Diabetes - NIDDM; UTI; - PSHx: 13:11 None; - Immunization history:: Adult Immunizations up to date. - Social history:: Smoking status: Patient denies any tobacco usage or history of. Patient/guardian denies using alcohol. Screenin:53 Abuse screen: Denies threats or abuse. Nutritional screening: No deficits noted. Tuberculosis screening: No symptoms or risk factors identified. Fall Risk None identified. Assessment: 13:00 General: Appears in no apparent distress. Behavior is cooperative. Pain: Denies pain. ah Neuro: Level of Consciousness is awake, alert, obeys commands, Oriented to person, place, time, situation. Cardiovascular: Denies chest pain, Heart tones S1 S2 present Capillary refill < 3 seconds Patient's skin is warm and dry. Respiratory: Respiratory effort is even, unlabored, Respiratory pattern is regular, symmetrical, Breath sounds are clear. GI: Bowel sounds present X 4 quads. Reports nausea, vomiting. : No signs and/or symptoms were reported regarding the genitourinary system. Derm: Skin is intact, is healthy with good turgor, Skin is dry. 19:39 Reassessment: Patient appears in no apparent distress at this time. Patient aware of lp1 pending admission to floor. 19:41 General: Appears in no apparent distress. Neuro: Level of Consciousness is awake, lp1 alert, obeys commands. Respiratory: Respiratory effort is even, unlabored. Derm: Skin is intact, Skin is dry, Skin is normal. Vital Signs: 12:41 BP 146 / 75; Pulse 92; Resp 18; Pulse Ox 100% ; ah 12:45 BP 132 / 68; Pulse 90; Resp 20; Temp 98.1; Pulse Ox 100% ; Weight 59.87 kg; Height 4 ah ft. 11 in. (149.86 cm); Pain 0/10; 13:45 BP 129 / 67; Pulse 96; Resp 18; Pulse Ox 100% ; ah 14:45 BP 144 / 80; Pulse 90; Resp 18; Pulse Ox 99% ; ah 15:45 BP 138 / 70; Pulse 88; Resp 18; Pulse Ox 98% ; ah 16:45 BP 136 / 88; Pulse 86; Resp 18; Pulse Ox 100% ; ah 17:45 BP 129 / 78; Pulse 80; Resp 18; Pulse Ox 100% ; ah 19:39 BP 129 / 67; Pulse 97; Resp 18; Pulse Ox 99% on R/A; lp1 12:45 Body Mass Index 26.66 (59.87 kg, 149.86 cm) ED Course: 12:48 Patient arrived in ED. dm5 12:57 Mariela Humphreys FNP-C [facility]. snw 12:57 Jerry Perez MD is Attending Physician. snw 13:00 Ellen Espinosa, RN is Primary Nurse. 13:04 Triage completed. ah 13:05 Patient has correct armband on for positive identification. Placed in gown. Bed in low jp3 position. Call light in reach. Side rails up X 1. Side rails up X2. Warm blanket given. Verbal reassurance given. germ drier on. Pulse ox on. NIBP on. 13:10 EKG done, by ED staff, reviewed by Mariela BATEMAN. 3 13:20 Initial lab(s) drawn, by oh, sent to lab. Inserted saline lock: 20 gauge in right jp3 antecubital area, using aseptic technique. Blood collected. Patient maintains SpO2 saturation greater than 95% on room air. 13:31 XRAY Chest (1 view) In Process Unspecified. EDMS 14:25 CT Head Brain wo Cont In Process Unspecified. EDMS 14:25 CT Chest For PE Angio In Process Unspecified. EDMS 15:12 Abhay Patricia DO is Hospitalizing Provider. snw 19:39 No provider procedures requiring assistance completed. Patient admitted, IV remains in lp1 place. Administered Medications: 14:19 Drug: Zofran (Ondansetron) 4 mg Route: IVP; Site: right antecubital; 22:40 Follow up: Response: No adverse reaction 16:10 Drug: NS 0.9% 1000 ml Route: IV; Rate: 1 bolus; Site: right antecubital; 22:40 Follow up: Response: No adverse reaction 19:26 Drug: GI Cocktail without - (Maalox Suspension 30 ml, Lidocaine Liquid 2 % 15 ll1 ml) Route: PO; 22:40 Follow up: Response: No adverse reaction Outcome: 15:13 Decision to Hospitalize by Provider. snw 19:39 Admitted to Med/surg room 216, with chart, Report called to HITESH Mortensen lp1 19:39 Condition: stable 19:39 Instructed on the need for admit. 20:12 Patient left the ED. lp1 Signatures: Dispatcher [employer] EDMS Alia Bahena RN RN dm5 Mariela Humphreys FNP-C [employer] Marsha Krishnamurthy RN RN lp1 Mario Mcmullen jp3 Espinosa, Ellen, RN RN ah Richard, Lynsay, RN RN ll1 Corrections: (The following items were deleted from the chart) 19:41 19:39 Reassessment: Patient appears in no apparent distress at this time. Patient aware lp1 of pending admission to floor lp1
--- NOTE | 2019-11-19 20:13 | EDPHYS ---
Physician Documentation [facility] Name: Zahra Jolley Age: 64 yrs Sex: Female : 1955 Arrival Date: 11/19/2019 Time: 12:48 Bed 20 Private MD: MASON Physician Jerry Perez HPI: 11/18 13:50 This 64 yrs old Female presents to ER via Ambulatory with complaints of dizziness, near snw syncope. 13:50 The patient has experienced near-syncope, almost passed out, felt dizzy, felt generally snw weak. Onset: The symptoms/episode began/occurred suddenly, just prior to arrival. Duration: This was a single episode, that lasted an unknown period of time. Context: the episode(s) was witnessed, by co-worker(s), occurred at work, occurred while the patient was standing, Just prior to the episode the patient experienced lightheadedness. Associated injury: The patient did not suffer any apparent associated injury. Associated signs and symptoms: Pertinent positives: diaphoresis, dizziness, lightheadedness, nausea, vomiting. Current symptoms: pt states she is feeling better, continued dizziness. The patient has not experienced similar symptoms in the past. appt tomorrow with Dr. Rodriguez for "scratchy throat, cough". Historical: - Allergies: 13:11 Codeine; 13:11 Morphine; 13:11 Phenergan; 13:11 Demerol; - Home Meds: 13:11 Metformin Oral [Active]; Amaryl Oral [Active]; Claritin Oral [Active]; atorvastatin ah oral oral [Active]; Lisinopril Oral [Active]; - PMHx: 13:11 Diabetes - NIDDM; UTI; - PSHx: 13:11 None; - Immunization history:: Adult Immunizations up to date. - Social history:: Smoking status: Patient denies any tobacco usage or history of. Patient/guardian denies using alcohol. ROS: 14:06 Eyes: Negative for injury, pain, redness, and discharge. snw 14:06 Neck: Negative for injury, pain, and swelling, Cardiovascular: Negative for chest pain, palpitations, and edema, Respiratory: Negative for shortness of breath, cough, wheezing, and pleuritic chest pain. 14:06 Back: Negative for injury and pain, : Negative for injury, bleeding, discharge, and swelling, MS/Extremity: Negative for injury and deformity, Skin: Negative for injury, rash, and discoloration. 14:06 Constitutional: Positive for body aches, fatigue, malaise. 14:06 ENT: Positive for sore throat. 14:06 Abdomen/GI: Positive for nausea and vomiting. 14:06 Neuro: Positive for dizziness, near syncope. Exam: 14:05 Constitutional: This is a well developed, well nourished patient who is awake, alert, snw and in no acute distress. Head/Face: Normocephalic, atraumatic. Eyes: Pupils equal round and reactive to light, extra-ocular motions intact. Lids and lashes normal. Conjunctiva and sclera are non-icteric and not injected. Cornea within normal limits. Periorbital areas with no swelling, redness, or edema. ENT: Nares patent. No nasal discharge, no septal abnormalities noted. Tympanic membranes are normal and external auditory canals are clear. Oropharynx with no redness, swelling, or masses, exudates, or evidence of obstruction, uvula midline. Mucous membranes moist. Neck: Trachea midline, no thyromegaly or masses palpated, and no cervical lymphadenopathy. Supple, full range of motion without nuchal rigidity, or vertebral point tenderness. No Meningismus. Chest/axilla: Normal chest wall appearance and motion. Nontender with no deformity. No lesions are appreciated. Cardiovascular: Regular rate and rhythm with a normal S1 and S2. No gallops, murmurs, or rubs. Normal PMI, no JVD. No pulse deficits. Respiratory: Lungs have equal breath sounds bilaterally, clear to auscultation and percussion. No rales, rhonchi or wheezes noted. No increased work of breathing, no retractions or nasal flaring. Abdomen/GI: Soft, non-tender, with normal bowel sounds. No distension or tympany. No guarding or rebound. No evidence of tenderness throughout. Back: No spinal tenderness. No costovertebral tenderness. Full range of motion. Skin: Warm, dry with normal turgor. Normal color with no rashes, no lesions, and no evidence of cellulitis. MS/ Extremity: Pulses equal, no cyanosis. Neurovascular intact. Full, normal range of motion. Neuro: Awake and alert, GCS 15, oriented to person, place, time, and situation. Cranial nerves II-XII grossly intact. Motor strength 5/5 in all extremities. Sensory grossly intact. Cerebellar exam normal. No nystagmus Psych: Awake, alert, with orientation to person, place and time. Behavior, mood, and affect are within normal limits. Vital Signs: 12:41 BP 146 / 75; Pulse 92; Resp 18; Pulse Ox 100% ; ah 12:45 BP 132 / 68; Pulse 90; Resp 20; Temp 98.1; Pulse Ox 100% ; Weight 59.87 kg; Height 4 ah ft. 11 in. (149.86 cm); Pain 0/10; 13:45 BP 129 / 67; Pulse 96; Resp 18; Pulse Ox 100% ; ah 14:45 BP 144 / 80; Pulse 90; Resp 18; Pulse Ox 99% ; ah 15:45 BP 138 / 70; Pulse 88; Resp 18; Pulse Ox 98% ; ah 16:45 BP 136 / 88; Pulse 86; Resp 18; Pulse Ox 100% ; ah 17:45 BP 129 / 78; Pulse 80; Resp 18; Pulse Ox 100% ; ah 19:39 BP 129 / 67; Pulse 97; Resp 18; Pulse Ox 99% on R/A; lp1 12:45 Body Mass Index 26.66 (59.87 kg, 149.86 cm) MDM: 12:59 Patient medically screened. [facility] 14:04 Data reviewed: vital signs, nurses notes. Data interpreted: Pulse oximetry: on room air snw is 100 %. Interpretation: normal. 14:07 Physician consultation: Abhay Patricia DO was called at 14:07, was contacted at 14:07, snw regarding admission, to the telemetry unit. would like further tests performed, CoVid 19. 11/18 12:58 Order name: Glucose, Ancillary Testing; Complete Time: 13:07 EDMS 11/18 13:09 Order name: Basic Metabolic Panel; Complete Time: 13:53 snw 11/18 13:09 Order name: CBC with Diff; Complete Time: 13:40 snw 11/18 13:09 Order name: LFT's; Complete Time: 13:53 snw 11/18 13:09 Order name: Magnesium; Complete Time: 13:53 snw 11/18 13:09 Order name: NT PRO-BNP; Complete Time: 13:53 snw 11/18 13:09 Order name: PT-INR; Complete Time: 13:44 snw 11/18 13:09 Order name: Troponin (emerg Dept Use Only); Complete Time: 13:53 snw 11/18 13:09 Order name: XRAY Chest (1 view) snw 11/18 13:45 Order name: CT Head Brain wo Cont snw 11/18 14:06 Order name: COVID-19; Complete Time: 16:27 snw 11/18 14:06 Order name: Strep; Complete Time: 15:48 snw 11/18 14:06 Order name: Flu; Complete Time: 15:48 snw 11/18 15:48 Order name: Throat Culture EDMS 11/18 13:09 Order name: EKG; Complete Time: 13:11 snw 11/18 13:09 Order name: Cardiac monitoring; Complete Time: 13:24 snw 11/18 13:09 Order name: EKG - Nurse/Tech; Complete Time: 13:12 snw 11/18 13:09 Order name: IV Saline Lock; Complete Time: 13:24 snw 11/18 13:09 Order name: Labs collected and sent; Complete Time: 13:24 snw 11/18 13:09 Order name: O2 Per Protocol; Complete Time: 13:12 snw 11/18 13:09 Order name: O2 Sat Monitoring; Complete Time: 13:12 snw 11/18 13:45 Order name: CT Chest For PE Angio snw EC:00 Rhythm is regular. QRS [place] is Normal. [place] interval is normal. QRS interval is normal. snw QT interval is normal. No Q waves. T waves are Normal. No ST changes noted. Clinical impression: Normal ECG. Administered Medications: 14:19 Drug: Zofran (Ondansetron) 4 mg Route: IVP; Site: right antecubital; 22:40 Follow up: Response: No adverse reaction 16:10 Drug: NS 0.9% 1000 ml Route: IV; Rate: 1 bolus; Site: right antecubital; ah 22:40 Follow up: Response: No adverse reaction 19:26 Drug: GI Cocktail without - (Maalox Suspension 30 ml, Lidocaine Liquid 2 % 15 ll1 ml) Route: PO; 22:40 Follow up: Response: No adverse reaction ah Disposition: 11/19 12:54 Co-signature as Attending Physician, Jerry Perez MD I agree with the assessment and [facility] plan of care. Disposition: 11/19/19 15:13 Hospitalization ordered by Abhay Patricia for Observation. Preliminary diagnosis are Syncope and collapse, Dizziness and giddiness, Emphysema, unspecified. - Bed requested for Telemetry/MedSurg (observation). - Status is Observation. lp1 - Condition is Stable. - Problem is new. - Symptoms are unchanged. Signatures: Dispatcher [employer] EDCT Jerry Perez MD MD cha Therrien, Shelly, [employer]GE[employer]-C [employer]GE[employer]-Csnw Reyna Wong, RN RN ss Marsha Krishnamurthy RN RN lp1 Ellen Espinosa RN RN Rojas Elizalde, RN RN ll1 Corrections: (The following items were deleted from the chart) 11/18 17:24 15:13 Hospitalization Ordered by Abhay Patricia DO for Observation. Preliminary ss diagnosis is Syncope and collapse; Dizziness and giddiness; Emphysema, unspecified. Bed requested for Telemetry/MedSurg (observation). Status is Observation. Condition is Stable. Problem is new. Symptoms are unchanged. snw 20:12 17:24 11/19/2019 15:13 Hospitalization Ordered by Abhay Patricia DO for Observation. lp1 Preliminary diagnosis is Syncope and collapse; Dizziness and giddiness; Emphysema, unspecified. Bed requested for Telemetry/MedSurg (observation). Status is Observation. Condition is Stable. Problem is new. Symptoms are unchanged. ss
[2019-11-19] MEDS: NA CHLORIDE 0.9% 1,000 ML IV SCH (20:24)
[2019-11-19 20:33] VITALS: BMI 26.6
[2019-11-19 21:16] LABS: CKMB Creatine Kinase MB < 1.0 ng/mL (0.3-3.6); Creatine Phosphokinase 136 U/L (26-192); Troponin I < 0.02 ng/mL (0.0-0.045)
[2019-11-19 21:46] LABS: Urine Appearance CLEAR; Urine Bilirubin NEGATIVE (NEG); Urine Blood TRACE (NEG); Urine Color YELLOW; Urine Glucose NEGATIVE (NEG); Urine Protein NEGATIVE (NEG); Urine Specific Gravity >=1.030 (1.005-1.030); Urine Urobilinogen 0.2 mg/dL (0.2-1.0)
[2019-11-19 21:57] LABS: Urine Microscopic Reflex ORDER UMIC
[2019-11-19 22:15] LABS: Urine Bacteria NONE SEEN /HPF (<20); Urine Culture Reflex Order NOT NEEDED
[2019-11-19] MEDS: FAMOTIDINE 20 MG TAB PO SCH (22:52)
[2019-11-20 05:58] LABS: Absolute Lymphocytes (CBC) 2.3 K/uL (0.7-4.9); Basophils % 0.5 % (0-1.3); Hematocrit 33.8 % (36.0-45.0); Lymphocytes % 23.6 % (15.3-44.8); MPV 8.4 fL (7.6-11.3); RBC Red Blood Cell Count 3.84 M/uL (3.86-4.86)
[2019-11-20] MEDS: NA CHLORIDE 0.9% 1,000 ML IV SCH ×2 (06:00→20:19)
[2019-11-20 06:06] LABS: CKMB Creatine Kinase MB 1.1 ng/mL (0.3-3.6); Creatine Phosphokinase 112 U/L (26-192); Troponin I < 0.02 ng/mL (0.0-0.045)
[2019-11-20 06:11] LABS: Magnesium 2.6 mg/dL (1.8-2.4); Thyroid Stimulating Hormone 0.208 uIU/mL (0.360-3.740)
[2019-11-20] MEDS: INSULIN -REGULAR HUMAN 50 UNIT/0.5 ML ML SQ SCH ×4 (07:30→20:19)
[2019-11-20] MEDS: ENOXAPARIN 40 MG/0.4 ML SQ SCH (09:00)
[2019-11-20] MEDS: LORATADINE 10 MG TAB PO SCH (09:00)
[2019-11-20] MEDS: FAMOTIDINE 20 MG TAB PO SCH ×2 (09:11→20:18)
[2019-11-20] MEDS: ONDANSETRON 4 MG/2 ML VIAL IV PRN ×2 (09:54→17:04)
[2019-11-20] MEDS ORDERED: NA CHLORIDE 0.9% 500 ML IV ONE (11:26)
--- NOTE | 2019-11-20 11:56 | RAD REPORT ---
EXAM DESCRIPTION: US - CP - 11/20/2019 11:49 am CLINICAL HISTORY: presyncope Headache, drowsiness COMPARISON: THYROID PARA PAROTID GLAND dated 06/22/2012 TECHNIQUE: Real-time sonographic evaluation of both carotid systems was performed. Doppler interroga tion was performed with waveform tracing bilaterally. FINDINGS: Normal high resistance waveforms are noted in both external carotid arteries. The common c arotid arteries and internal carotid arteries show normal low resistance waveforms. No significant plaque formation is seen. Mild bilateral intimal thickening. Peak systolic and end baltazar stolic velocity values and the ICA/CCA ratios are in the non-hemodynamically significant range. Antegrade flow seen in both vertebral arteries. IMPRESSION: No significant atherosclerotic changes noted. No evidence of a hemodynamically significant stenosis.
--- NOTE | 2019-11-20 14:02 | P.PN ---
Subjective Date of Service: 11/20/19 Primary Care Provider: unknown Chief Complaint: Dizziness, diaphoresis Subjective: No new changes Review of Systems General: Unremarkable Eyes: Unremarkable ENT: As per HPI Respiratory: Unremarkable Cardiovascular: Unremarkable Gastrointestinal: Unremarkable Genitourinary: Unremarkable Musculoskeletal: Unremarkable Integumentary: Unremarkable Neurological: As per HPI Physical Examination - Vital Signs Temperature: 97.3 F Blood Pressure: 135/64 Pulse: 91 Respirations: 20 Pulse Ox (%): 97 - Physical Exam General: Alert, In no apparent distress, Oriented x3 HEENT: Atraumatic, Normocephalic Neck: Supple Respiratory: Clear to auscultation bilaterally, Normal air movement Cardiovascular: No edema Capillary refill: <2 Seconds Gastrointestinal: Normal bowel sounds Musculoskeletal: No swelling Integumentary: No erythema, No warmth Neurological: Normal gait, Normal speech - Studies Microbiology Data (last 24 hrs): 11/19/19 15:09 Nasopharnyx Coronavirus COVID-19 PCR - Final 11/19/19 15:06 Throat Group A Streptococcus Rapid Screen - Final 11/19/19 15:06 Nasopharnyx Influenza Type A Antigen Screen - Final 11/19/19 15:06 Nasopharnyx Influenza Type B Antigen Screen - Final Assessment & Plan Discharge Plan: Home Plan to discharge in: 24 Hours - Code Status/Comfort Care Code Status Assessed: Yes Physician Review Additional Text: Impression: Dizziness, diaphoresis-presyncope suspect related to dehydration Acute renal injury likely from dehydration Chronic cough suspect related to VARUN-inhibitor Hypertension Diabetes mellitus type 2 Plan: Dizziness, diaphoresis-presyncope, cough suspect related to dehydration: Patient will be admitted for further evaluation and observation. Patient feels that she becomes dizzy when she stands up. IV fluid bolus administered, patient still reports that she is dizzy when she stands up. Labs and imaging to this point have been unremarkable, due to persistent dizziness and MRI will be obtained to rule out cerebellar or brainstem infarct. Anticipate discharge in the next 24 hr. Will also have patient work with physical therapy as she could be at risk for falls. Acute renal injury likely from dehydration: Continue IV fluids. Will monitor closely. Electrolyte protocol in place. Chronic cough suspect related to VARUN-inhibitor: Will continue to hold Varun inhibitors at this time. Hypertension: Continue patient's home medication. Will hold VARUN-inhibitor. Will consider adjusting medication accordingly. Diabetes mellitus type 2: Will monitor Accu-Cheks and provide sliding scale. Critical Care: No Time Spent Managing Pts Care (In Minutes): 55
--- NOTE | 2019-11-20 16:57 | RAD REPORT ---
EXAM DESCRIPTION: MRI - Brain W/Wo Cont - 11/20/2019 4:21 pm CLINICAL HISTORY: Syncope COMPARISON: November 19, [address] TECHNIQUE: Axial, sagittal, and coronal magnetic images of the brain were obtained. 13 cc MultiHance administered intravenously FINDINGS: Mild signal within periventricular, deep and subcortical white matter probably ischemic ch anges secondary to small vessel disease The ventricles are normal in caliber. Diffusion-weighted/ ADC mapping sequences do not demonstrate evidence of an acute infarction. No abnormal enhancement within the brain is seen. An extra-axial fluid collection is not noted. Fluid within the sinuses/mastoids is not seen IMPRESSION: No acute abnormality displayed
--- NOTE | 2019-11-20 16:59 | RAD REPORT ---
EXAM DESCRIPTION: MRI - MRA Neck W/Wo Cont - 11/20/2019 4:22 pm CLINICAL HISTORY: syncope COMPARISON: None. TECHNIQUE: Magnetic resonance angiogram of the neck was performed. 19 cc MultiHance was administered intravenously. 3D MIPS reconstruction performed FINDINGS: The common carotid, internal carotid and external carotid arteries do not demonstrate a si gnificant stenosis. An aneurysm is not seen. The left vertebral artery is dominant. No vertebral abnormality noted IMPRESSION: Unremarkable MRA neck NASCET criteria used. Mild 0-49% stenosis Moderate 50-69% stenosis Severe 70-99% stenosis
--- NOTE | 2019-11-20 17:01 | RAD REPORT ---
EXAM DESCRIPTION: MRI - MRA Head Wo Cont - 11/20/2019 4:19 pm CLINICAL HISTORY: Syncope COMPARISON: None. TECHNIQUE: Magnetic resonance angiogram was performed. 3D MIPS reconstruction performed FINDINGS: The anterior cerebral, middle cerebral, posterior cerebral, distal internal carotid and ba silar arteries do not demonstrate a significant stenosis. origin of the posterior cerebral arteries. An aneurysm is not displayed. IMPRESSION: Unremarkable MRA brain.
--- NOTE | 2019-11-20 19:29 | EKG ---
Test Date: 2019-11-19 Test Time: 12:54:53 Application Programmer Analyst: SAGRARIO MEASUREMENT RESULTS: Intervals: Rate: 85 DC: 140 QRSD: 72 QT: 362 QTc: 430 [place]: P: 13 DC: 140 QRS: 66 T: 40 INTERPRETIVE STATEMENTS: Normal sinus rhythm Normal ECG Compared to ECG 08/10/2018 12:44:54 T-wave abnormality no longer present Electronically Signed On 11-20-19 19:24:27 CDT by William Edge
[2019-11-20] MEDS: MECLIZINE HCL 12.5 MG TAB PO PRN (20:20)
[2019-11-21] MEDS: NA CHLORIDE 0.9% 1,000 ML IV SCH (03:25)
[2019-11-21] MEDS: ONDANSETRON 4 MG/2 ML VIAL IV PRN (05:53)
[2019-11-21] MEDS: MECLIZINE HCL 12.5 MG TAB PO PRN (05:53)
[2019-11-21] MEDS: INSULIN -REGULAR HUMAN 50 UNIT/0.5 ML ML SQ SCH ×2 (07:30→11:30)
[2019-11-21] MEDS: ENOXAPARIN 40 MG/0.4 ML SQ SCH (08:06)
[2019-11-21] MEDS: LORATADINE 10 MG TAB PO SCH (08:06)
[2019-11-21] MEDS: FAMOTIDINE 20 MG TAB PO SCH (08:06)
--- NOTE | 2019-11-21 08:50 | ECHO ---
HEIGHT: 4 ft 11 in WEIGHT: 132 lb 0 oz DATE OF STUDY: 11/20/[address]: Abhay Patricia DO 2-DIMENSIONAL: YES M.MODE: YES DOPPLER: YES COLOR FLOW: YES TDS: PORTABLE: DEFINITY: BUBBLE STUDY: DIAGNOSIS: PRESYNCOPE CARDIAC HISTORY: CATHERIZATION: NO SURGERY: NO PROSTHETIC VALVE: NO PACEMAKER: NO MEASUREMENTS (cm) DIASTOLIC (NORMALS) SYSTOLIC (NORMALS) IVSd 0.8 (0.6-1.2) LA Diam 3.1 (1.9-4.0) LVEF 58% LVIDd 3.9 (3.5-5.7) LVIDs 2.8 (2.0-3.5) %FS 30% LVPWd 0.9 (0.6-1.2) Ao Diam 2.6 (2.0-3.7) 2 DIMENSIONAL ASSESSMENT: RIGHT ATRIUM: NORMAL LEFT ATRIUM: NORMAL RIGHT VENTRICLE: NORMAL LEFT VENTRICLE: NORMAL TRICUSPID VALVE: NORMAL MITRAL VALVE: NORMAL PULMONIC VALVE: NORMAL AORTIC VALVE: NORMAL PERICARDIAL EFFUSION: NONE AORTIC ROOT: NORMAL LEFT VENTRICULAR WALL MOTION: NORMAL DOPPLER/COLOR FLOW: NORMAL COMMENTS: NORMAL2-DIMENSIONAL ECHOCARDIOGRAM WITH DOPPLER. NO WALL MOTION ABNORMALITY. NO EFFUSION. TECHNOLOGIST: JOSEPH BRODERICK
--- NOTE | 2019-11-21 12:20 | P.DS ---
Admission Date: 11/19/19 Discharge Date: 11/21/19 Primary Care Provider: unknown Disposition: ROUTINE DISCHARGE Discharge Condition: GOOD Reason for Admission: Dizziness, diaphoresis Consultations: none Procedures: MRI Brain: FINDINGS: The anterior cerebral, middle cerebral, posterior cerebral, distal internal carotid and basilar arteries do not demonstrate a significant stenosis. origin of the posterior cerebral arteries. An aneurysm is not displayed. IMPRESSION: Unremarkable MRA brain. Neck Brain: FINDINGS: The common carotid, internal carotid and external carotid arteries do not demonstrate a significant stenosis. An aneurysm is not seen. The left vertebral artery is dominant. No vertebral abnormality noted IMPRESSION: Unremarkable MRA neck NASCET criteria used. Carotid doppler: FINDINGS: Normal high resistance waveforms are noted in both external carotid arteries. The common carotid arteries and internal carotid arteries show normal low resistance waveforms. No significant plaque formation is seen. Mild bilateral intimal thickening. Peak systolic and end diastolic velocity values and the ICA/CCA ratios are in the non-hemodynamically significant range. Antegrade flow seen in both vertebral arteries. IMPRESSION: No significant atherosclerotic changes noted. No evidence of a hemodynamically significant stenosis. ECHO: EF-58% LEFT VENTRICULAR WALL MOTION: NORMAL DOPPLER/COLOR FLOW: NORMAL COMMENTS: NORMAL2-DIMENSIONAL ECHOCARDIOGRAM WITH DOPPLER. NO WALL MOTION ABNORMALITY. NO EFFUSION. Medical problem list: Dizziness, diaphoresis-presyncope suspect related to dehydration and vertigo Acute renal injury likely from dehydration Chronic cough suspect related to POLLO-inhibitor Hypertension Diabetes mellitus type 2 Brief History of Present Illness: 64-year-old female presented to the emergency room with dizziness, diaphoresis. The episodes of dizziness and diaphoresis occurred at work. She also reported a cough over the past week. She reports that this cough is allergy related. Some congestion noted. She denies any fever, chills, shortness of breath. She denies any sick contacts. 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 Patient also reported some nausea with vomiting today. Patient further reports that she has been taking POLLO-inhibitor for hypertension. She came to the ER for further evaluation. In the ER patient was evaluated. CT head unremarkable. CT chest showed no evidence of pneumonia or pulmonary embolism. Chest x-ray unremarkable. Flu test negative. Strep test negative. White count 9.8, hemoglobin 13. Sodium 137, potassium 4.2. BUN of 18, creatinine 0.86 with a GFR 67. Glucose 141. Troponin unremarkable. Testing for COVID was done. The patient was admitted for further evaluation. When I saw the patient ER, patient appeared stable. She appears slightly dehydrated. She did not appear septic. Vital signs stable. Hospital Course: Patient presented with dizziness, diaphoresis and presyncope. Patient also reported a chronic cough. Patient appeared dehydrated with noted acute renal injury. The patient was admitted for further evaluation. Patient was given IV fluids with improvement. Lisinopril was discontinued. She had been taking this medication due to microalbuminuria. Cough resolved once lisinopril was taken off. Her dizziness persisted. Patient had multiple tests for further evaluation. This included: MRI brain, MRA brain, MRA neck, carotid Doppler, echocardiogram, all unremarkable. Patient was placed on Antivert. Symptoms resolved. At discharge she is without any significant dizziness. Patient id better hydrated with improvement of renal function. At discharge patient will go home on meclizine 12.5 mg 1 pill 3 times a day as needed for dizziness. At discharge will also recommend to discontinue lisinopril. Recommend to monitor blood pressure daily. If blood pressure increases more than 140/90 consistently then another medication can be considered. This can be further addressed by her PCP. Patient with diabetes mellitus type 2. At discharge she will continue with her current medications. This includes Amaryl 1 mg 1 pill twice daily and metformin 500 mg 1 pill twice daily. Recommend to maintain blood sugar less 140 fasting and less than 200 after meals. Further adjustment can be done by her PCP. Patient with hyperlipidemia. At discharge she will continue with Crestor 40 mg daily. Vital Signs/Physical Exam: Temp Pulse Resp BP Pulse Ox 97.1 F 99 H 18 134/62 98 11/21/19 08:00 11/21/19 08:00 11/21/19 08:00 11/21/19 08:00 11/21/19 08:00 General: Alert, In no apparent distress, Oriented x3, Cooperative HEENT: Atraumatic Neck: Supple Respiratory: Clear to auscultation bilaterally, Normal air movement Cardiovascular: Normal pulses, Regular rate/rhythm Gastrointestinal: Normal bowel sounds, Soft and benign, Non-distended, No tenderness, No masses, No rebound, No guarding Musculoskeletal: No erythema, No tenderness, No warmth Integumentary: No tenderness/swelling, No erythema, No warmth, No cyanosis Neurological: Normal speech, Normal strength at 5/5 x4 extr, Normal tone, Normal affect Laboratory Data at Discharge: WBC 9.8 K/uL (4.3-10.9) 11/20/19 05:15 Hgb 11.3 g/dL (12.0-15.0) L 11/20/19 05:15 Hct 33.8 % (36.0-45.0) L 11/20/19 05:15 Plt Count 260 K/uL (152-406) 11/20/19 05:15 PT 12.1 SECONDS (9.5-12.5) 11/19/19 13:20 INR 1.03 11/19/19 13:20 Sodium 140 mmol/L (136-145) 11/20/19 05:15 Potassium 4.0 mmol/L (3.5-5.1) 11/20/19 05:15 BUN 13 mg/dL (7-18) 11/20/19 05:15 Creatinine 0.69 mg/dL (0.55-1.3) 11/20/19 05:15 Glucose 99 mg/dL (74-106) 11/20/19 05:15 Magnesium 2.6 mg/dL (1.8-2.4) H 11/20/19 05:15 Total Bilirubin 0.9 mg/dL (0.2-1.0) 11/19/19 13:20 AST 23 U/L (15-37) 11/19/19 13:20 ALT 46 U/L (12-78) 11/19/19 13:20 Alkaline Phosphatase 80 U/L (45-117) 11/19/19 13:20 Troponin I < 0.02 ng/mL (0.0-0.045) 11/20/19 05:15 Triglycerides 91 mg/dL (<150) 11/20/19 05:15 Cholesterol 148 mg/dL (<200) 11/20/19 05:15 HDL Cholesterol 61 mg/dL (40-60) H 11/20/19 05:15 Cholesterol/HDL Ratio 2.43 11/20/19 05:15 Home Medications: Glimepiride [Amaryl*] 1 mg PO BID 11/19/19 Metformin ER [Glucophage ER*] 500 mg PO BID 11/19/19 Rosuvastatin Calcium 40 mg PO BEDTIME 11/19/19 Meclizine HCl [Antivert*] 12.5 mg PO TID PRN #10 tab 11/21/19 New Medications: Meclizine HCl [Antivert*] 12.5 mg PO TID PRN #10 tab PRN Reason: Dizziness Patient Discharge Instructions: Patient presented with dizziness, diaphoresis and presyncope. Patient also reported a chronic cough. Patient appeared dehydrated with noted acute renal injury. The patient was admitted for further evaluation. Patient was given IV fluids with improvement. Lisinopril was discontinued. She had been taking this medication due to microalbuminuria. Cough resolved once lisinopril was taken off. Her dizziness persisted. Patient had multiple tests for further evaluation. This included: MRI brain, MRA brain, MRA neck, carotid Doppler, echocardiogram, all unremarkable. Patient was placed on Antivert. Symptoms resolved. At discharge she is without any significant dizziness. Patient id better hydrated with improvement of renal function. At discharge patient will go home on meclizine 12.5 mg 1 pill 3 times a day as needed for dizziness. At discharge will also recommend to discontinue lisinopril. Recommend to monitor blood pressure daily. If blood pressure increases more than 140/90 consistently then another medication can be considered. This can be further addressed by her PCP. Patient with diabetes mellitus type 2. At discharge she will continue with her current medications. This includes Amaryl 1 mg 1 pill twice daily and metformin 500 mg 1 pill twice daily. Recommend to maintain blood sugar less 140 fasting and less than 200 after meals. Further adjustment can be done by her PCP. Patient with hyperlipidemia. At discharge she will continue with Crestor 40 mg daily. Diet: ADA Activity: Fall precautions Time spent managing pt's care (in minutes): 55
[2019-11-21 12:38] VITALS: O2SAT 97
[2019-11-21 15:03] VITALS: BP 103/53; TEMP 97.5
== END 2019-11-21 13:32 | disposition home or self-care (01) ==
LOC: ER 12:42 → ERHOLD 15:46 → 2ND 19:39
PROVIDERS: ADMIT Family Medicine; ATTEND Family Medicine
DX: N17.9 Acute kidney failure, unspecified (principal); R55 Syncope and collapse; R61 Generalized hyperhidrosis; R05 Cough; I10 Essential (primary) hypertension; E11.9 Type 2 diabetes mellitus without complications; E78.5 Hyperlipidemia, unspecified; Z20.828 Contact with and (suspected) exposure to other viral communicable diseases
CPT/HCPCS: 93005; 93306; 87040 ×2; 87070; 85025 ×2; 80048 ×2; 36415; 83735 ×2; 82550 ×2; 85610; 80061; 82947 ×8; 80076; 87081; 84443; 84484 ×3; 82553 ×2; 84439; 83880; 87804 ×2; 70450; 71275; 71045; 93880; 70553; 70544; 70549; 97116; 97161; 96374; 99285; U0002; A9577; J8597 ×2; J7040; J7030 ×5; J2405 ×5; G0378 ×4; 81003; 81015; J1650

== ENCOUNTER → 2024-01-23 | Day surgery (SDC) | payer BC ==
--- NOTE | 2024-01-23 11:07 | RAD REPORT ---
EXAM DESCRIPTION: Ultrasound-guided vacuum assisted right breast core biopsy CLINICAL HISTORY: Breast mass R92.8 COMPARISON: Follow Up Breast Axilla Comp dated 01/11/2024; 3D DIAG MACKENZIE BILAT W/CAD dated 01/11/2024 FINDINGS: Informed consent was obtained following discussion of the risks and benefits with the holly ent. Time-out was performed. The patient's right breast was prepped and draped in the usual sterile fashion. 1% lidocaine was used for local anesthetic purposes. Utilizing aseptic technique and under real-time ultrasound guidance, a 12 gauge vacuum assisted core biopsy device was used to obtain 3 core specimens through the mass of interest again seen at 12 o'adelina ck position. A post biopsy clip was then placed. All collected material was sent for surgical pathology analysis. Patient tolerated procedure well, wi thout evidence of complications at the time of the preceding. IMPRESSION: Successful ultrasound guided vacuum assisted right breast mass biopsy.
== END ==
LOC: DS 08:43
PROVIDERS: ATTEND Internal Medicine
DX: C50.811 Malignant neoplasm of overlapping sites of right female breast (principal); Z17.0 Estrogen receptor positive status [ER+]
CPT/HCPCS: 19083; 88305

== ENCOUNTER 2024-02-08 06:06 | Day surgery (SDC) | payer BC ==
[2024-02-07 14:40] LABS: Absolute Basophils 0.1 K/uL (0-0.5); Absolute Eosinophils 0.1 K/uL (0-0.5); Absolute Lymphocytes (CBC) 2.2 K/uL (0.7-4.9); Absolute Monocytes 0.7 K/uL (0.1-1.3); Absolute Neutrophil 4.9 K/uL (1.8-8.0); Basophils % 0.7 % (0-1.3); Eosinophils % 1.6 % (0-4.4); Hematocrit 41.1 % (36.0-45.0); Hemoglobin 13.4 g/dL (12.0-15.0); Lymphocytes % 27.5 % (15.3-44.8); MCH 31.1 pg (27.0-35.0); MCHC 32.6 g/dL (32.0-36.0); MCV 95.4 fL (80-100); MPV 7.8 fL (7.6-11.3); Monocytes % 8.6 % (3.3-12.3); Neutrophils % 61.6 % (41.7-73.7); Platelets 327 thou/uL (152-406); RBC Red Blood Cell Count 4.31 M/uL (3.86-4.86); Red Cell Distribution Width 13.5 % (12.1-15.2)
[2024-02-07 14:47] LABS: Anion Gap 13.5 mEq/L (5.0-15.0); Potassium 3.5 mEq/L (3.5-5.1)
[2024-02-08] MEDS ORDERED: Ringers Lactate 0 ML IV ONE (06:19)
[2024-02-08] MEDS ORDERED: NA CHLORIDE 0.9% 1,000 ML ONE (06:30)
[2024-02-08] MEDS ORDERED: DEXMEDETOMIDINE HCL 200 MCG/2 ML VIAL ONE ×2 (08:00→09:15)
[2024-02-08] MEDS ORDERED: BUPIVACAINE 0.25% PF 30 ML VIAL ONE (08:00)
[2024-02-08] MEDS ORDERED: BUPIVACAINE 0.25% PF 10 ML VIAL ONE (08:00)
[2024-02-08] MEDS ORDERED: LIDOCAINE 1% MPF 5 ML VIAL ONE (08:00)
[2024-02-08] MEDS ORDERED: BUPIVACAINE 0.5% PF 10 ML VIAL ONE (08:00)
[2024-02-08] MEDS ORDERED: MIDAZOLAM HCL 2 MG/2 ML INJ ONE (08:00)
[2024-02-08] MEDS ORDERED: dexAMETHasone 10 MG/ML VIAL ONE ×2 (08:00→08:44)
[2024-02-08] MEDS ORDERED: MAGNESIUM SULFATE 1 gm IVPB 1 GM/100 ML BAG IV ONE ×2 (08:00→09:15)
[2024-02-08] MEDS ORDERED: EPINEPHRINE 1 MG/ML VIAL ONE (08:00)
[2024-02-08] MEDS ORDERED: FENTANYL CITR 100 MCG/2 ML ONE (08:00)
--- NOTE | 2024-02-08 08:29 | RAD REPORT ---
EXAM DESCRIPTION: NM - Lymphoscintigraphy - 02/08/2024 7:45 am CLINICAL HISTORY: Right Breast cancer COMPARISON: None. TECHNIQUE: Two injections of 258 uCi (total) Lymphoseek administered into the lateral and medial of the right breast at 6:35 am on 02/08/24. Subsequently a scintigram was obtained which demonstrated the radiotracer within these locations. IMPRESSION: Right breast lymphoscintigram
[2024-02-08] MEDS ORDERED: ROCURONIUM 50 MG/5 ML VIAL IV ONE (08:44)
[2024-02-08] MEDS ORDERED: LIDOCAINE 2% MPF 5 ML VIAL ONE ×2 (08:44→09:20)
[2024-02-08] MEDS ORDERED: ONDANSETRON 4 MG/2 ML VIAL ONE (08:44)
[2024-02-08] MEDS ORDERED: KETOROLAC 30 MG/ML INJ ONE (08:44)
[2024-02-08] MEDS ORDERED: propofoL 200 MG/20 ML VIAL IV ONE (08:44)
[2024-02-08] MEDS ORDERED: SUCCINYLCHOLINE 20 MG/ML (10 ML) IV ONE (08:51)
[2024-02-08] MEDS: CEFAZOLIN SODIUM 2 GM/VIAL ONE (08:54)
[2024-02-08] MEDS ORDERED: KETAMINE HCL IN 0.9 % NACL 50 MG/5 ML SYRINGE IV ONE (09:20)
[2024-02-08] MEDS: BUPIVACAINE 0.5% PF 10 ML VIAL ONE (09:25)
--- NOTE | 2024-02-08 10:22 | P.OP ---
Date of Service: 02/08/24 Preop diagnosis: Right breast skin Postop diagnosis: Same Procedure performed: Redfield node biopsy, right breast mastectomy Surgeon: Norm Nicole MD [employer] Tr[employer] Driver: Lien CURTIS Estimated blood loss: Minimal Specimen: Redfield nodenegative for metastatic disease, left breastmargins free Findings: As above Anesthesia: General Complications: None Drains: KAMALJIT #10 flat Fluids and blood products: Nonapplicable Disposition: Recovery room Operative note: Patient brought to the OR and placed in supine position. General anesthesia began. Then under sterile condition methylene blue was injected around the nipple. Breast was massaged. Then patient was prepped and draped in usual sterile fashion. Device to isolate sentinel node was utilized. A 3 cm incision was made in the right axilla. All counts were recorded in the medical records. A blue lymph node was identified and excised in the deep subcutaneous tissue. The lymph node was sent to pathology for frozen section and revealed no evidence of metastatic disease. This wound was closed at the end of the case with 3-0 chromic. Ellipse of skin around the left breast and including the palpable mass at 12:00 was made. Flaps were created in the standard fashion. Superiorly the breast was dissected to the clavicle, medially to the border of the sternum, inferiorly to the insertion of the rectus abdominis muscle and laterally to the anterior border of the latissimus dorsi. Then, all breast tissue was removed from the pectoralis fascia. The breast was sent for margin check. Margins were negative. Entire wound was irrigated with clear effluent. During the procedure bleeding was controlled with cautery. Selwyn-Arvizu drain #10 flat was placed under the flap and secured with 3-0 nylon. 2-0 chromic and 3-0 chromic were used to close the subcutaneous tissue and the skin. Sterile dressing applied. Patient awakened and taken to recovery room in good general condition. CC: Dr. Rosenthal's office
[2024-02-08] MEDS ORDERED: HYDROCODONE/APAP 7.5/325 MG TAB PO PRN (10:27)
[2024-02-08 13:56] VITALS: BP 143/72; TEMP 97; O2SAT 100
== END 2024-02-08 15:00 | disposition home or self-care (01) ==
LOC: DS 06:06
PROVIDERS: ATTEND Surgery
PROC: 07B50ZX Excision of Right Axillary Lymphatic, Open Approach, Diagnostic (ICD-10-PCS; 2024-02-08)
PROC: 0HBT0ZZ Excision of Right Breast, Open Approach (ICD-10-PCS; principal; 2024-02-08 08:30)
DX: C50.111 Malignant neoplasm of central portion of right female breast (principal); Z17.0 Estrogen receptor positive status [ER+]
CPT/HCPCS: 36415; 78195; 80048; 82947; 85025; 88307; 88333; A9520; J0171; J1100; J2001; J2250; J2405; J2704; J3010; J3475; J7030; J7120